=== PATIENT | male | born 1945 | race Caucasian/White ===

== ENCOUNTER → 2020-11-23 16:06 | Outpatient (CLI) | payer MEDICARE, OTHER, SELFPAY ==
--- NOTE | 2020-11-23 16:17 | DI.RAD.S_ITS ---
PROCEDURE: XR HIP W PEL IF DONE RT 2V INDICATIONS: CHRONIC R HIP PAIN TECHNIQUE: AP pelvis with lateral view(s) of the right hip(s). COMPARISON: None. FINDINGS: Bones: No fractures or dislocations. Pelvic ring appears intact. No suspicious bony lesions. Soft tissues: The visualized bowel gas pattern is normal. No suspicious soft tissue calcifications. IMPRESSION: Mild symmetric hip joint osteoarthritis. Dictated by: Abdirashid Vee M.D. on 11/23/2020 at 17:23 Approved by: Abdirashid Vee M.D. on 11/23/2020 at 17:24
== END ==
PROVIDERS: PCP Orthopaedic Surgery Adult Reconstructive Orthopaedic Surgery; Referring Provider Family Medicine; Visit Provider Family Medicine
DX: M25.551 Pain in right hip (principal); M16.11 Unilateral primary osteoarthritis, right hip; G89.29 Other chronic pain
CPT/HCPCS: 73502

== ENCOUNTER → 2021-07-14 12:00 | Outpatient (CLI) | payer MEDICARE, OTHER, SELFPAY ==
--- NOTE | 2021-07-14 | DI.MRI.S_ITS ---
PROCEDURE: MR LUMBAR SPINE WO CON INDICATIONS: Low back pain TECHNIQUE: Noncontrast sagittal T1 spin echo and T2 fast echo, sagittal STIR, axial T1 and T2 fast spin echo through the lumbar spine. In cases with scoliosis, additional coronal T2 fast spin echo may be performed. COMPARISON: None. FINDINGS: Image quality: Excellent. Alignment and Curvature: There is normal bony alignment. Bone Marrow: Degenerative endplate changes noted particularly at L2-3 where there is a large Schmorl's node in the inferior endplate of L2. Spinal Cord: Conus medullaris terminates at the L1 level. Visualized cord demonstrates normal signal and size. Paraspinous Soft Tissues: No paravertebral masses. T12-L1: Mild disc height loss and circumferential disc bulge noted with mild central and no foraminal stenosis. L1-L2: Disc height is preserved. Mild vacuum disc phenomena noted. Circumferential disc bulge and hypertrophic facet joints results in mild central and no foraminal stenosis. L2-L3: Moderate disc space narrowing and circumferential disc bulge with vacuum disc phenomena present resulting in moderate central stenosis. Moderate bilateral foraminal stenosis greater on the right. L3-L4: Mild disc space narrowing and vacuum disc phenomena present with circumferential disc bulge and hypertrophic facet joints resulting in moderate central stenosis. Moderate left and severe right foraminal stenosis present. L4-L5: Disc height is preserved, there is vacuum disc phenomena noted. There is a asymmetric left broad-based disc bulge effacing the left lateral recess and displacing the descending nerve root. Mild central stenosis. Mild hypertrophic facet joints present. Moderate right and left foraminal stenosis, greater on the left. L5-S1: Disc height is preserved no disc bulge, central or foraminal stenosis. IMPRESSION: 1. Multilevel degenerative disc disease and arthropathy resulting in varying degrees of central and foraminal stenosis including moderate central stenosis at L2-3 and L3-4 with severe right foraminal stenosis at L3-4 Approved by: Sotero Quinteros M.D. on 07/14/2021 at 13:07
== END ==
PROVIDERS: PCP Orthopaedic Surgery Adult Reconstructive Orthopaedic Surgery; Referring Provider Orthopaedic Surgery Orthopaedic Surgery of the Spine; Visit Provider Orthopaedic Surgery Orthopaedic Surgery of the Spine
DX: M54.5 Low back pain (principal); M51.36 Other intervertebral disc degeneration, lumbar region; M48.061 Spinal stenosis, lumbar region without neurogenic claudication; M47.816 Spondylosis without myelopathy or radiculopathy, lumbar region
CPT/HCPCS: 72148

== ENCOUNTER → 2024-01-25 13:07 | Outpatient (CLI) | payer MEDICARE, OTHER, SELFPAY ==
--- NOTE | 2024-01-27 03:19 | DI.NM.S_ITS ---
DATE OF SERVICE: 01/25/2024 PROCEDURE PERFORMED: Pharmacologic vasodilator stress and rest myocardial perfusion imaging with gating to assess ejection fraction and regional wall motion. ORDERING PROVIDER: Abundio Herrera MD INDICATIONS: The patient is a 78-year-old male with recently discovered atrial fibrillation. CARDIAC STRESS: Per protocol, 0.4 mg of regadenoson was infused with a normal hemodynamic response. He had no chest discomfort or other anginal symptoms. His resting ECG shows atrial fibrillation with low QRS voltage and delayed R-wave transition but fairly normal ST segments. With stress, there were no significant ST-segment shifts or other arrhythmias. Per protocol, 25.5 millicuries of technetium-99m Myoview was injected and he was imaged 15 minutes later using a gated SPECT acquisition protocol. The day prior while at rest, he had been injected with 26.1 millicuries of technetium-99m Myoview and was imaged 15 minutes later, again using a gated SPECT acquisition protocol. FINDINGS: 1. Raw data. There is marginal myocardial tracer uptake with evidence for possible chest wall attenuation. No prone images are available. The lung/heart ratio is normal at 0.29. While the TID ratio is borderline elevated at 1.25, this is nonspecific with the use of vasodilator stress and is not visually apparent and thus lacks specificity. 2. Quantitated gated SPECT: The post-stress ejection fraction is estimated at 70% without any focal wall motion abnormality and specifically the distal anteroseptal apex demonstrates normal contractility. The resting ejection fraction is 67% with a normal resting end-diastolic volume of 81 mL. 3. Myocardial perfusion imaging: Post-stress supine images show marginal tracer uptake with diffuse heterogeneity but a small focal defect in the distal anteroseptal apex. The patient was unable to lie prone to assess for possible attenuation artifact. The resting images show a similar perfusion pattern with slight improvement in the distal anteroseptal defect but it is a predominantly fixed defect. IMPRESSION: 1. Probable normal myocardial perfusion study. 2. Small, focal, predominantly fixed but slightly reversible perfusion defect in the distal anteroseptal apex that most likely reflects chest wall attenuation although a small nontransmural infarction with slight yanet-infarct ischemia cannot be entirely excluded, yet the lack of any wall motion abnormality in this distribution would mitigate against this. There is no compelling evidence for any significant myocardial ischemic burden. 3. Normal left ventricular size and function without any focal wall motion abnormality. While the TID ratio is borderline elevated, this is nonspecific. 4. No angina or ECG evidence of ischemia with pharmacologic vasodilator stress. He was in atrial fibrillation throughout the study without other arrhythmia and had low QRS voltage. MaribelChapin - /leif/ doc#: [id number]/job#: [id number] dd: 01/26/2024 17:33:00 dt: 01/27/2024 02:50:00 DICTATING MD/COPIES TO: Christofer Roche MD; Abundio Herrera MD COPIES MNE: ROYCE;
== END ==
PROVIDERS: PCP Orthopaedic Surgery Adult Reconstructive Orthopaedic Surgery; Referring Provider Internal Medicine Cardiovascular Disease; Visit Provider Internal Medicine Cardiovascular Disease
DX: I48.19 Other persistent atrial fibrillation (principal)
CPT/HCPCS: 78452; 93017; A9502; J2785

== ENCOUNTER → 2025-04-17 15:15 | Outpatient (CLI) | payer MEDICARE, OTHER, SELFPAY ==
--- NOTE | 2025-04-17 15:21 | DI.RAD.S_ITS ---
PROCEDURE: XR LUMBAR SPINE 3V INDICATIONS: LOWER BACK PAIN TECHNIQUE: 3 views of the lumbar spine were acquired. COMPARISON: None. FINDINGS: Moderate degenerative changes of the lower thoracic, lumbar spine. Mild S- shaped scoliosis. Degenerative changes bilateral hips and sacral iliac joints partially imaged. Severe vascular calcifications of the aorta and iliac vessels partially imaged. Surgical clips status post cholecystectomy. IMPRESSION: Degenerative changes as discussed above. If symptoms persist or worsen, or there is high clinical suspicion of lumbar abnormality, MRI could be performed. Dictated by: Jeffrey Marin M.D. on 04/18/2025 at 10:10 Approved by: Jeffrey Marin M.D. on 04/18/2025 at 10:39
== END ==
PROVIDERS: PCP Orthopaedic Surgery Adult Reconstructive Orthopaedic Surgery; Referring Provider Family Medicine; Visit Provider Family Medicine
DX: M47.814 Spondylosis without myelopathy or radiculopathy, thoracic region (principal); M47.816 Spondylosis without myelopathy or radiculopathy, lumbar region; M47.818 Spondylosis without myelopathy or radiculopathy, sacral and sacrococcygeal region; M51.9 Unspecified thoracic, thoracolumbar and lumbosacral intervertebral disc disorder; I70.0 Atherosclerosis of aorta; M54.50 Low back pain, unspecified; G89.29 Other chronic pain; Z90.49 Acquired absence of other specified parts of digestive tract
CPT/HCPCS: 72100

== ENCOUNTER → 2025-10-20 14:37 | Outpatient (CLI) | payer MEDICARE, OTHER, SELFPAY ==
--- NOTE | 2025-10-20 14:39 | DI.RAD.S_ITS ---
PROCEDURE: XR FOOT LT MIN 3V INDICATIONS: PAIN OF LEFT 4th and 5th TOE TECHNIQUE: 3 views of the foot were acquired. COMPARISON: None. FINDINGS: Osseous demineralization. Atherosclerotic calcification. Chronic healed fracture of the 5th metatarsal. Diffuse soft tissue swelling. Plantar calcaneal spur. Joint spacing and alignment maintained. No acute fracture or bone erosion. IMPRESSION: No acute abnormality Dictated by: Misha Reed M.D. on 10/20/2025 at 16:51 Approved by: Misha Reed M.D. on 10/20/2025 at 16:52
== END ==
PROVIDERS: PCP Orthopaedic Surgery Adult Reconstructive Orthopaedic Surgery; Referring Provider Family Medicine; Visit Provider Family Medicine
DX: M77.32 Calcaneal spur, left foot (principal); M79.675 Pain in left toe(s); M79.89 Other specified soft tissue disorders
CPT/HCPCS: 73630